=== PATIENT | male | born 1955 | race Caucasian/White ===

== ENCOUNTER → 2018-10-10 | Outpatient (CLI) | payer MEDICARE, OTHER ==
--- NOTE | 2018-10-11 14:32 | CT ---
EXAMINATION TYPE: CT angio neck DATE OF EXAM: 10/10/2018 HISTORY: carotid stenosis, hx of cva COMPARISON: 10/21/2011 CT DLP: 974.3 mGycm. Automated Exposure Control for Dose Reduction was Utilized. TECHNIQUE: CTA scan of the neck is performed with IV Contrast, patient injected with 100 mL of Isovu e 370, axial images are obtained, coronal and sagittal reformatted images are reviewed. Three-D recon structed images are created on an independent workstation and reviewed. FINDINGS: Aortic arch is intact. There is normal branching pattern of the great vessels. There is bilateral art erial flow in the subclavian arteries. There is a very small right vertebral artery. There is normal- appearing left vertebral artery. The basilar artery fills mostly from the left side. There is arterial flow in the common internal and external carotid arteries bilaterally. There is sig nificance plaque formation and luminal narrowing at the proximal left internal carotid artery. There is 2.5 cm segment of plaque at the posterior wall of the proximal left internal carotid artery. The l umen narrowing is approximately 80%. On the right side the carotid artery bifurcation is widely patent. There is apparent endarterectomy o n the right side. IMPRESSION: There is right-sided endarterectomy. No evidence of stenosis in the right carotid artery. There is approximate 80% stenosis left internal carotid artery that has progressed compared to old ex am. Diminutive right vertebral artery unchanged.
== END ==
LOC: RADCTMAIN 17:10
PROVIDERS: ATTEND Thoracic Surgery (Cardiothoracic Vascular Surgery)
DX: I65.22 Occlusion and stenosis of left carotid artery (principal); Z98.890 Other specified postprocedural states
CPT/HCPCS: 70498; Q9967

== ENCOUNTER → 2018-12-03 | Outpatient (CLI) | payer MEDICARE, OTHER ==
[2018-12-03 14:40] LABS: Basophils % (A) 1 %; Eosinophils # (A) 0.1 k/uL (0-0.7); Eosinophils % (A) 1 %; HCT 40.8 % (39.0-53.0); HGB 13.3 gm/dL (13.0-17.5); Lymphocytes # (A) 1.3 k/uL (1.0-4.8); Lymphocytes % (A) 24 %; MCH 29.7 pg (25.0-35.0); MCHC 32.5 g/dL (31.0-37.0); MCV 91.3 fL (80.0-100.0); Mean Platelet Volume 7.5; Monocytes # (A) 0.3 k/uL (0-1.0); Monocytes % (A) 5 %; Neutrophils # (A) 3.8 k/uL (1.3-7.7); Neutrophils % (A) 67 %; Platelet Count 202 k/uL (150-450); RBC 4.47 m/uL (4.30-5.90); RDW 13.5 % (11.5-15.5); WBC 5.6 k/uL (3.8-10.6)
[2018-12-03 14:47] LABS: African American GFR (CKD) >90 (>60 ml/min/1.73 sqM); Anion Gap 10 mmol/L; Blood Urea Nitrogen 13 mg/dL (9-20); Carbon Dioxide 28 mmol/L (22-30); Chloride 104 mmol/L (98-107); Non-African American GFR(CKD) >90 (>60 ml/min/1.73 sqM); Potassium 3.9 mmol/L (3.5-5.1); Sodium 142 mmol/L (137-145)
== END | disposition home or self-care (01) ==
LOC: LABPAT 13:43
PROVIDERS: ATTEND Surgery
DX: Z01.812 Encounter for preprocedural laboratory examination (principal); I65.22 Occlusion and stenosis of left carotid artery
CPT/HCPCS: 36415; 80051; 82565; 84520; 85025; 86850; 86900; 86901

== ENCOUNTER 2018-12-11 07:35 | Day surgery (SDC) | payer MEDICARE, OTHER ==
[2018-12-03 09:02] VITALS: BMI 34.2
[~2018-12-11 07:35] MED LIST: DEXAMETHASONE SOD PHOSPHATE 10 MG/ML 1 ML VIAL IV ONE; HYDROmorphone 0.5 MG/0.5 ML SYRINGE IVP PRN; LIDOCAINE 1% 20 ML VIAL (10MG/ML) FOR IV START INTRADERMA PRN; MIDAZOLAM 2 MG/2 ML VIAL IV PRN; NITROGLYCERIN-D5W PMX 50 MG in DEXTROSE/WATER 1 250ML.BAG IV ONE; ONDANSETRON 4 MG/2 ML VIAL IVP ONE; PHENYLEPHRINE 40 MG in SODIUM CHLORIDE 0.9% 250 ML IV ONE; SCOPOLAMINE 1.5MG/72HR PATCH TRANSDERM ONE
[2018-12-11] MEDS: LACTATED RINGERS 1,000 ML IV SCH (08:28)
[2018-12-11] MEDS ORDERED: ROCURONIUM BROMIDE 10 MG/ML 10 ML VIAL IV ONE (09:16)
[2018-12-11] MEDS ORDERED: NEOSTIGMINE 1 MG/ML 10 ML VIAL ONE (09:16)
[2018-12-11] MEDS ORDERED: GLYCOPYRROLATE 0.2 MG/ML 2 ML VIAL ONE (09:16)
[2018-12-11] MEDS ORDERED: PROPOFOL 10 MG/ML 20 ML VIAL IV ONE (09:16)
[2018-12-11] MEDS ORDERED: LABETALOL 5 MG/ML VIAL MDV ONE (09:16)
[2018-12-11] MEDS ORDERED: METOPROLOL TARTRATE 5 MG/5 ML VIAL IVP ONE (09:16)
[2018-12-11] MEDS ORDERED: PROTAMINE SULFATE 10 MG/ML 5 ML VIAL IV ONE (09:16)
[2018-12-11] MEDS ORDERED: PHENYLEPHRINE-0.9% NACL SYG 1 MG/10 ML SYRINGE ONE (09:16)
[2018-12-11] MEDS ORDERED: fentaNYL (PF) 50 MCG/ML 2 ML AMP ONE (09:16)
[2018-12-11] MEDS ORDERED: ePHEDrine SULFATE/0.9% NACL/PF 50 MG/5 ML SYRINGE IV ONE (09:16)
[2018-12-11] MEDS ORDERED: HEPARIN SODIUM,PORCINE 10,000 UNIT/ML 1 ML VIAL ONE (09:16)
[2018-12-11] MEDS ORDERED: MIDAZOLAM 2 MG/2 ML VIAL ONE (09:16)
[2018-12-11] MEDS ORDERED: LIDOCAINE 1% INJ 10MG/ML (20 ML MDV) ONE (09:16)
--- NOTE | 2018-12-11 09:20 | P.ANPRN ---
Procedure Note - Anesthesia - Invasive Line Right Arterial Line Time Out Performed: Yes Date of Procedure: 12/11/18 Time of Procedure: 08:50 Location of Patient Procedure: PreOp Preparation: Sterile Prep Arterial Line Location: Radial Ultrasound Used: No Needle Guage: 20 Narrative: Central line placement per sterile protocol utilized.
[2018-12-11] MEDS ORDERED: LIDOCAINE 1%-EPI 1:100,000 20 ML VIAL SQ ONE (10:13)
[2018-12-11] MEDS ORDERED: GELATIN SPONGE,ABSORB (LARGE) 1 EACH SPONGE TOPICAL ONE (10:14)
[2018-12-11] MEDS ORDERED: THROMBIN (BOVINE) 5,000 UNIT VIAL TOPICAL ONE (10:14)
[2018-12-11] MEDS ORDERED: LACTATED RINGERS 1,000 ML IV ONE ×2 (10:42)
[2018-12-11] MEDS ORDERED: HYDROcodone/APAP 5-325MG 1 EACH TAB PO PRN (12:01)
[2018-12-11] MEDS ORDERED: TRIMETHOBENZAMIDE 100 MG/ML 2 ML VIAL IM PRN (12:01)
[2018-12-11] MEDS ORDERED: MORPHINE SULFATE 2 MG/ML SYRINGE IVP PRN (12:01)
[2018-12-11] MEDS ORDERED: ACETAMINOPHEN TAB 325 MG TAB PO PRN (12:01)
[2018-12-11] MEDS ORDERED: MAG HYDROX/AL HYDROX/SIMETH 30 ML CUP PO PRN (12:01)
[2018-12-11 13:34] LABS: Glucose,Whole Blood 111 mg/dL (75-99)
--- NOTE | 2018-12-11 14:15 | P.CNPUL ---
History of Present Illness Consult date: 12/11/18 Requesting physician: Armond Hauser Reason for consult: other (Critical care management) Chief complaint: Carotid stenosis History of present illness: This is a very pleasant 63-year-old gentleman who follows with Dr. Merritt as his primary care physician. 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 He was recently found to have been 80s percent stenosis on the CT angiogram on 10/10/2018. He presented here today electively for a left carotid endarterectomy performed by Dr. Hauser. He is seen postoperatively in the intensive care unit. He is currently awake and alert in no acute distress. No new neurologic deficits. Maintaining good O2 saturations in the 90s on 2 L/m per nasal cannula. Currently hemodynamically stable. He has been initiated on cefazolin, Lovenox, lactated Ringer's at 20 ML's per hour. Review of Systems REVIEW OF SYSTEMS: CONSTITUTIONAL: Denies any recent significant weight loss or weight gain. EYES: Denies change in vision. EARS, NOSE, MOUTH, THROAT: Denies headaches, denies sore throat. CARDIOVASCULAR: Denies chest pain, palpitations or syncopal episodes. RESPIRATORY: Denies shortness of breath, cough, congestion or hemoptysis. GASTROINTESTINAL: Denies change in appetite, denies abdominal pain GENITOURINARY: Denies hematuria, denies infections. MUSKULOSKELETAL: Denies pain, denies swelling. INTEGUMENTARY: Denies rash, denies eczema. NEUROLOGICAL: Denies recent memory loss, no recent seizure activity. Previous right-sided CVA with left-sided paralysis of the left upper extremity, weakness of the left lower extremity. PSYCHIATRIC: Denies anxiety, denies depression. HEMATOLOGIC/LYMPHATIC: Denies anemia, denies enlarged lymph nodes. Past Medical History Past Medical History: CVA/TIA, GERD/Reflux, Hyperlipidemia, Hypertension Additional Past Medical History / Comment(s): "rt side brain stroke 2011"- left vision effected, paralysis left arm, weakness left leg(can not move ankle or knee)-uses brace for drop foot, heart murmer, occ. edema left foot and hand, frequent urination, 80 % blockage left carotid artery, gets botox injections in left arm. History of Any Multi-Drug Resistant Organisms: None Reported Past Surgical History: Cholecystectomy, Orthopedic Surgery, Tonsillectomy Additional Past Surgical History / Comment(s): rt knee arthroscopy, surgery rt carotid artery, Past Anesthesia/Blood Transfusion Reactions: No Reported Reaction Smoking Status: Former smoker - Past Family History Mother Family Medical History: No Reported History Medications and Allergies Home Medications Medication Instructions Recorded Confirmed Type Aspirin 325 mg PO DAILY 12/03/18 12/11/18 History Doxazosin [Cardura] 2 mg PO HS 12/03/18 12/11/18 History Ergocalciferol (Vitamin D2) 50,000 unit PO QMONTH 12/03/18 12/11/18 History [Vitamin D2] Gabapentin [Neurontin] 600 mg PO DAILY 12/03/18 12/11/18 History Hydrocodone/Acetaminophen [[place] 1 tab PO TID 12/03/18 12/11/18 History 10-325] Multivitamins, Thera [Multivitamin 1 tab PO DAILY 12/03/18 12/03/18 History (formulary)] Omeprazole 20 mg PO DAILY 12/03/18 12/11/18 History Simvastatin [Zocor] 80 mg PO DAILY 12/03/18 12/11/18 History Tart Barba Extract 1 tab PO DAILY 12/03/18 12/11/18 History amLODIPine [Norvasc] 10 mg PO DAILY 12/03/18 12/11/18 History buPROPion HCL [Wellbutrin SR] 150 mg PO DAILY 12/03/18 12/11/18 History tiZANidine HCL 6 mg PO DAILY 12/03/18 12/11/18 History Allergies Allergy/AdvReac Type Severity Reaction Status Date / Time No Known Allergies Allergy Verified 12/11/18 08:17 Physical Exam Vitals: Vital Signs Temp Pulse Pulse Resp BP BP BP 12/11/18 13:19 12/11/18 13:00 69 16 111/61 126/71 12/11/18 12:45 74 16 130/80 110/52 12/11/18 12:30 79 16 119/75 119/53 12/11/18 12:15 75 16 116/74 122/58 12/11/18 12:03 97.6 F 81 14 110/74 121/54 12/11/18 08:14 98.4 F 73 16 118/70 Pulse Ox 12/11/18 13:19 97 12/11/18 13:00 97 12/11/18 12:45 97 12/11/18 12:30 95 12/11/18 12:15 98 12/11/18 12:03 98 12/11/18 08:14 100 Intake and Output 12/10/18 12/11/18 12/11/18 22:59 06:59 14:59 Intake Total 1550 Output Total 950 Balance 600 Intake: IV 1550 Output: Urine 850 Estimated Blood Loss 100 GENERAL EXAM: Alert, oriented 63-year-old gentleman who is comfortable and in no apparent distress. On 2 L nasal cannula. HEAD: Normocephalic. EYES: Normal reaction of pupils, equal size. NOSE: Clear with pink turbinates. THROAT: No erythema or exudates. NECK: No masses, no JVD. CHEST: No chest wall deformity. LUNGS: Equal air entry with no crackles, wheeze, rhonchi or dullness. CVS: S1 and S2 normal with no audible murmur, regular rhythm. ABDOMEN: No hepatosplenomegaly, normal bowel sounds, no guarding or rigidity. SPINE: No scoliosis or deformity SKIN: No rashes CENTRAL NERVOUS SYSTEM: Reveals right-sided CVA with left-sided paralysis of the left upper extremity and weakness of left lower extremity. EXTREMITIES: There is no peripheral edema. No clubbing, no cyanosis. Peripheral pulses are intact. Results - Laboratory Findings Abnormal lab findings: Abnormal Labs 12/11/18 13:22 POC Glucose (mg/dL) 111 H Assessment and Plan Assessment: Impression: #1 Left sided carotid stenosis, status post left cardiac endarterectomy. Postoperative day #0. #2 Previous history of right-sided CVA with visual left upper extremity paralysis left lower extremity weakness status post right carotid endarterectomy. #3 History of hypertension. #4 Hyperlipidemia. #5 Anxiety/depression. #6 Former smoker. Plan: The patient was seen and evaluated by Dr. Castillo. He is currently stable from the pulmonary and critical care standpoint. We'll continue with neuro checks. Continue to monitor him closely here in the intensive care unit. We will continue to follow make further recommendations based on his clinical status. I, the cosigning physician, performed a history & physical examination of the patient. Lungs sounds are clear. Maintaining good O2 saturations in the 90s on 2 L/m per nasal cannula. I discussed the assessment and plan of care with my nurse practitioner, Alisha Lomas. I attest to the above note as dictated by her. Time with Patient: Greater than 30
[2018-12-11] MEDS: SODIUM CHLORIDE 0.9% 1,000 ML IV SCH ×2 (14:48→23:08)
[2018-12-11] MEDS: HYDROcodone/APAP 10-325MG 1 EACH TAB PO SCH ×2 (16:22→21:12)
[2018-12-11] MEDS: GABAPENTIN 300 MG CAP PO SCH (17:21)
--- NOTE | 2018-12-11 17:28 | P.OP ---
Date of Procedure: 12/11/18 Preoperative Diagnosis: High-grade left internal carotid artery stenosis. Postoperative Diagnosis: Same. Procedure(s) Performed: Left carotid endarterectomy with patch angioplasty. Implants: Bovine carotid patch Anesthesia: BRISEYDA Surgeon: Armond Hauser Estimated Blood Loss (ml): 100 IV fluids (ml): 900 Urine output (ml): 700 Pathology: other (Carotid plaque) Condition: stable Disposition: ICU Indications for Procedure: Hemodynamically severe left ICA stenosis Operative Findings: High-grade stenosis with ulceration and sub-plaque hemorrhage Description of Procedure: Patient was brought the upper and placed in supine position and administered general endotracheal anesthesia delivered by the department anesthesiology. Patient received intravenously admission prophylactic antibiotics in the perioperative phase. Bonner catheter was placed to gravity drainage the left neck, supraclavicular and anterior chest wall areas were sterilely prepped and draped in usual manner. Skin incision was made overlying the anterior border of the sternocleidomastoid muscle carried down through the subcu change tissues. Hemostasis was achieved using electrocautery. Platysma muscle was divided. The facial vein was identified dissected free of investing tissues and ligated with silk suture and transected. The dissection was deepened down the level the carotid sheath. The sheath was opened and the proximal common carotid artery was identified dissected free of investing tissues and encircled Vesseloops. The dissection was then carried cephalad to the level of bulb where the superior thyroid and external carotid arteries were identified. These were dissected free of investing tissues and encircled Vesseloops. The dissection was then carried cephalad along the internal carotid artery. The hypoglossal nerve was noted and left undisturbed. The vagus nerve had also previously been identified and left undisturbed. Dissection was carried past the level of plaquing where was encircled with a vessel loop. Patient was administered IV heparin and ACT was noted be 282. The Vesseloops surrounding the superior thyroid, external carotid artery, common carotid artery internal carotid arteries were then drawn closed. Arteriotomy was made in the common carotid artery extended through the bulb into the internal carotid artery passed local plaquing. Don't pressure was obtained this was found to be 82 mmHg mean and no shunting was thus thought necessary. Endarterectomy was started in the common level and extended cephalad to the level of bulb. A retraction endarterectomy was performed on the external system. The endarterectomy plane was then continued into the internal system and the distal end feathered off relatively well. The plaque was sent to the department pathology. It was found to be ulcerated and have sub-plaque hemorrhage. The remaining luminal surface was inspected and any loose or free-floating material was removed. The distal end of the endarterectomy plane was tacked with 6-0 silk sutures. Patch angioplasty closure of the arteriotomy was performed with bovine pericardial patch and 6-0 Prolene suture placed in running fashion. Just prior to completion of the anastomotic line the internal carotid artery was backbled and no thrombus was retrieved. The arterial artery closure was completed. The internal carotid artery was allowed to backbleed and then was occluded at its origin. The Vesseloops surrounding the superior thyroid artery, the external carotid artery and finally the common carotid artery were released thus flushing any potential debris into the external system. Flow was then restored into the internal system. 2 points of bleeding along the anastomotic line were identified and these were controlled with 6-0 Prolene suture. The patient was administered 25 mg of protamine to reverse the heparin effect. The wound was inspected for any points of bleeding and none were detected. Topical thrombin and Gelfoam were placed about the anastomotic line to help assure hemostasis. With hemostasis judged be adequate the wound was irrigated with antibiotic containing solution. Deep tissues closed with 3-0 Vicryl dermis was closed with 4-0 Monocryl placed in running intradermal fashion. Steri- Strips appropriate dressings were applied. Patient tolerated procedure well, awoke without apparent complication was transferred to the recovery area satisfactory and stable condition.
[2018-12-11] MEDS: ASPIRIN 325 MG TAB PO SCH (17:31)
[2018-12-11] MEDS ORDERED: DOXAZOSIN 2 MG TAB PO SCH (21:00)
[2018-12-12 04:23] LABS: HCT 36.7 % (39.0-53.0); HGB 12.5 gm/dL (13.0-17.5); MCH 31.8 pg (25.0-35.0); MCHC 34.2 g/dL (31.0-37.0); MCV 92.8 fL (80.0-100.0); Mean Platelet Volume 7.9; Platelet Count 196 k/uL (150-450); RBC 3.95 m/uL (4.30-5.90); RDW 13.7 % (11.5-15.5); WBC 9.1 k/uL (3.8-10.6)
[2018-12-12 04:47] LABS: African American GFR (CKD) >90 (>60 ml/min/1.73 sqM); Anion Gap 9 mmol/L; Blood Urea Nitrogen 17 mg/dL (9-20); Calcium 9.3 mg/dL (8.4-10.2); Carbon Dioxide 26 mmol/L (22-30); Chloride 105 mmol/L (98-107); Glucose 118 mg/dL (74-99); Non-African American GFR(CKD) >90 (>60 ml/min/1.73 sqM); Potassium 3.8 mmol/L (3.5-5.1); Sodium 140 mmol/L (137-145)
--- NOTE | 2018-12-12 06:25 | PN ---
PROGRESS NOTE DATE OF SERVICE: December 12, 2018. This is a 63-year-old gentleman, postop day #1 status post left carotid endarterectomy. The patient has a previous history of right-sided CVA with left upper extremity paralysis and left lower extremity weakness. He is also status post right carotid endarterectomy. He has a history of hypertension, hyperlipidemia, anxiety, depression, and previous tobacco use. The patient is currently on room air. He is getting saline at 100 mL an hour. He has had a pretty uneventful night. He denies any acute complaints at this time. Denies any shortness of breath, chest tightness, wheezing, cough, phlegm production, chest pain, chest pressure, palpitations, nausea, vomiting, diarrhea, or any genitourinary complaints. PHYSICAL EXAMINATION: VITAL SIGNS: His current vital signs include temperature 97.9, heart rate 72, respiratory rate 10, blood pressure 119/48, saturations on room air 96%. He appears in no acute distress. HEENT: Examination is unremarkable. Mucous membranes are moist. NECK: Supple. Full range of motion. No adenopathy. CARDIOVASCULAR: Examination reveals regular rhythm and rate. Heart rate in mid 70s. S1, S2 normal. No murmur. LUNGS: Reveal relatively clear breath sounds. No wheezes, rhonchi, or crackles. ABDOMEN: Soft. Bowel sounds are heard. No masses or tenderness. EXTREMITIES: Are intact. SKIN: Without rash. NEUROLOGIC: His neurologic examination reveals left-sided paralysis of the left upper extremity and weakness of the left lower extremity. He is alert and oriented. The rest of the examination is unremarkable. LABS: Labs are reviewed. Nothing more is back. No additional x-rays are done. MEDICATIONS: Medications are reviewed. Currently, they seem to be very appropriate. These are standard post carotid endarterectomy orders for the most part. ASSESSMENT: 1. Postoperative day #1, status post left carotid endarterectomy. 2. History of previous cerebrovascular accident. 3. Gastroesophageal reflux disease. 4. Hyperlipidemia. 5. Hypertension. 6. Previous history of tobacco use. 7. History of anxiety/depression. PLAN: The patient seems to be doing relatively well. The patient had an uneventful night. He is not having any major complaints. He is not requiring any supplemental oxygen. He is getting saline at 100 mL an hour. We will continue to follow closely. MMODL / IJN: [id number] /
[2018-12-12] MEDS ORDERED: PANTOPRAZOLE 40 MG TABLET PO SCH (07:30)
[2018-12-12 08:09] VITALS: RESP 19
[2018-12-12] MEDS: ASPIRIN 325 MG TAB PO SCH (08:22)
[2018-12-12] MEDS: HYDROcodone/APAP 10-325MG 1 EACH TAB PO SCH (08:23)
[2018-12-12] MEDS: GABAPENTIN 300 MG CAP PO SCH (08:23)
[2018-12-12] MEDS: LACTATED RINGERS 1,000 ML IV SCH (08:30)
[2018-12-12] MEDS ORDERED: ATORVASTATIN 40 MG TAB PO SCH (09:00)
[2018-12-12] MEDS ORDERED: amLODIPine 10 MG TAB PO SCH (09:00)
[2018-12-12] MEDS ORDERED: MULTIVITAMINS, THERA 1 EACH TAB PO SCH (09:00)
[2018-12-12] MEDS ORDERED: buPROPion SR 150 MG TABLET.ER PO SCH (09:00)
[2018-12-12] MEDS ORDERED: ENOXAPARIN 40 MG/0.4 ML SYRINGE SQ SCH (09:00)
[2018-12-12] MEDS ORDERED: TART CHERRY EXTRACT PO SCH (09:00)
[2018-12-12 09:04] VITALS: BP 136/94; PULSE 80; TEMP 98.4
--- NOTE | 2018-12-12 09:42 | P.PN ---
Subjective Progress Note Date: 12/12/18 Pt s/e. no complaints. feelin well. Pain controlled. NAD No resp distress L neck incision c/d/i no hematoma. POD #1 L CEA Continue activity as tolerated. Okay for DC home from vascular standpoint Asa/Statin/Plavix Objective - Vital Signs Vital signs: Vital Signs Temp 98.4 F 12/12/18 09:00 Pulse 80 12/12/18 09:00 Resp 19 12/12/18 09:00 BP 136/94 12/12/18 09:00 Pulse Ox 95 12/12/18 09:00 Intake & Output 12/11/18 12/12/18 12/12/18 18:59 06:59 18:59 Intake Total 2049 1200 350 Output Total 2000 630 150 Balance 50 570 200 Intake: IV 0 1200 100 0.9 NSS 500 1200 100 Oral 250 Output: Urine 1900 630 150 Estimated Blood Loss 100 Other: Voiding Method Indwelling Catheter Indwelling Catheter ABP, PAP, CO, CI - Last Documented Arterial Blood Pressure 149/60 - Labs CBC & Chem 7: 12/12/18 04:07 12/12/18 04:07 Labs: Abnormal Lab Results - Last 24 Hours (Table) 12/11/18 12/12/18 12/12/18 Range/Units 13:22 04:07 04:07 RBC 3.95 L (4.30-5.90) m/uL Hgb 12.5 L (13.0-17.5) gm/dL Hct 36.7 L (39.0-53.0) % Glucose 118 H (74-99) mg/dL POC Glucose (mg/dL) 111 H (75-99) mg/dL
[2018-12-12] MEDS ORDERED: CLOPIDOGREL 75 MG TAB PO SCH (10:00)
--- NOTE | 2018-12-12 12:46 | PN ---
PROGRESS NOTE DATE OF SERVICE: 12/12/2018 CHIEF COMPLAINT: Status post left carotid endarterectomy. HISTORY OF PRESENT ILLNESS: This gentleman is doing well. He is having no problems with vision in the left eye, problems with the right side of the face, right arm or right leg. He has had no headache, chest pain, fever, chills, etc. PHYSICAL EXAM: Head ears, eyes, nose, mouth, and throat are normal. Chest is clear. Cardiac exam is normal. Abdomen is soft. IMPRESSION: 1. Status post left carotid endarterectomy. 2. Old right-sided cerebrovascular accident. 3. Hypertension. PLAN: He will probably go home today. MMODL / IJN: [id number] /
--- NOTE | 2018-12-12 12:58 | CONS ---
CONSULTATION CHIEF COMPLAINT: Carotid occlusive disease. HISTORY OF PRESENT ILLNESS: This gentleman is in for an elective left carotid endarterectomy. He has had a prior right-sided CVA and endarterectomy and has a left hemiparesis. REVIEW OF SYSTEMS: He denies any headache, focal neurologic changes other than the old ones related to his previous right stroke. He has had no chest pain, syncope, palpitations, amaurosis fugax, abdominal pain, vomiting, cirrhosis, hematuria, frequency, urgency, renal failure, diarrhea, melena, etc. Past medical history, family history and personal and social histories reveal he is not allergic to any medication. He takes tizanidine 4 mg 3 times a day, along with 2 mg for a total of 6 t.i.d., doxazosin 2 mg at bedtime, simvastatin 80 mg at bedtime, Vicodin 10 p.r.n., Wellbutrin XR 150 mg once a day, omeprazole 20 mg once a day, amlodipine 10 mg once a day, gabapentin 600 mg 3 times a day, Zantac 150 twice a day, Norvasc 10 mg once a day, aspirin 325 once a day. The remainder of his history can be found in his admitting summary. PHYSICAL EXAMINATION: Blood pressure 116/62, pulse of 80, and regular, respirations 16. He is afebrile. GENERAL: He appeared to be well developed, well nourished, in no acute distress. Skin color is normal. Skin is warm, dry. Lymph nodes not enlarged. Head, ears, eyes, nose, mouth, and throat were normal. Neck veins not distended. Thyroid is not enlarged. Chest is clear. Cardiac exam is normal. Abdomen is soft and nontender. Extremities are normal except for his contractures in the left upper and lower extremities. IMPRESSION: 1. Old right-sided cerebrovascular accident. 2. Left-sided carotid occlusive disease. 3. Atherosclerotic cardiovascular disease. 4. Hypertension. PLAN: No change in program and continue on current medicines until he is able to be discharged. MMODL / IJN: [id number] /
[2018-12-13] MEDS ORDERED: ERGOCALCIFEROL 50,000 UNIT CAP PO SCH (09:00)
== END 2018-12-12 16:11 | disposition home or self-care (01) ==
LOC: OR 07:35 → 2SICU 13:15 → OR 12-12 16:11
PROVIDERS: ATTEND Surgery
DX: I65.22 Occlusion and stenosis of left carotid artery (principal); I10 Essential (primary) hypertension; E78.5 Hyperlipidemia, unspecified; F32.9 Major depressive disorder, single episode, unspecified; E05.90 Thyrotoxicosis, unspecified without thyrotoxic crisis or storm; M19.90 Unspecified osteoarthritis, unspecified site; I69.354 Hemiplegia and hemiparesis following cerebral infarction affecting left non-dominant side; H54.61 Unqualified visual loss, right eye, normal vision left eye; R35.0 Frequency of micturition; F41.9 Anxiety disorder, unspecified; I25.10 Atherosclerotic heart disease of native coronary artery without angina pectoris; K21.9 Gastro-esophageal reflux disease without esophagitis; Z90.49 Acquired absence of other specified parts of digestive tract; Z82.49 Family history of ischemic heart disease and other diseases of the circulatory system; Z87.891 Personal history of nicotine dependence; Z79.82 Long term (current) use of aspirin; Z79.891 Long term (current) use of opiate analgesic; Z79.899 Other long term (current) drug therapy
CPT/HCPCS: 35301; 88304; 80048; 85027; C1781; J2250; J2720; J1644; J1100; J2710; S0106; J0690; J2405; J2001; J1650; J3010; J2370; J2704; 86850; 86900; 86901